=== PATIENT | female | born 1980 | race American Indian/Alaskan Native ===

== ENCOUNTER 2019-02-07 12:50 | Emergency (ER) | payer MEDICARE, MEDICAID ==
[~2019-02-07 12:50] MED LIST: ADRENALIN ONE
--- NOTE | 2019-02-07 13:00 | Emergency Department Report ---
ED CPR HPI - General Stated Complaint: CARDIAC ARREST Time Seen by Provider: 02/07/19 12:55 - History of Present Illness Initial Comments: Patient is 38 years old female, senior care patient with a history of ischemic brain injury, chronic respiratory failure with tracheostomy, Crohn's disease, hypertension, generalized contracture and cognitive communication deficit. Patient brought to the emergency room via EMS in a full cardiac arrest, CPR in progress. EMS stated that patient initial rhythm was asystole and continued to be in asystole throughout her resuscitation. ACLS protocol initiated by EMS and continued in the emergency room. Patient intubated by EMS at the scene. Patient received 4 mg of epinephrine and 1 ampule of sodium bicarbonate. In the emergency room ET tube confirmed by me with good breath sounds on both sides. After approximately 40 minutes of resuscitation patient remained pulseless with asystole rhythm on the monitor. Patient pronounced at 12:53 PM. For further information please refer to code sheet. Family informed. Complaint: found unresponsive Place: NH/SNF Bystander CPR Performed: Yes Shock Advised: No Initial Findings in the Field: no pulse, systole ROSC in the Field: No Associated Injuries: No ED Review of Systems ROS: Stated complaint: CARDIAC ARREST Other details as noted in HPI Comment: Unobtainable due to pts medical conditions ED Physical Exam - General General appearance: other (CPR in progress) - Head Head exam: Present: atraumatic, normocephalic, normal inspection - Eye Pupils: Present: other (pupils are fixed and dilated) - Respiratory Respiratory exam: Present: other (no spontaneous breathing) - Cardiovascular Cardiovascular Exam: Present: other (no heart tones and no pulse) - GI/Abdominal GI/Abdominal exam: Present: soft, other (G-tube in place). Absent: distended - Neurological Exam Neurological exam: Present: other (CPR in progress) - Skin Skin exam: Present: warm, dry Critical Care Time: Yes Critical care time in (mins) excluding proc time.: 30 Critical care attestation.: If time is entered above; I have spent that time in minutes in the direct care of this critically ill patient, excluding procedure time. ED Disposition Clinical Impression: Cardiopulmonary arrest Disposition: DC-20 Is pt being admited?: No Condition: Stable
== END 2019-02-07 18:56 ==
LOC: ED 12:50
DX: I46.9 Cardiac arrest, cause unspecified (principal); I10 Essential (primary) hypertension
CPT/HCPCS: 99285; J0171